=== PATIENT | female | born 1990 | race American Indian/Alaskan Native ===

== ENCOUNTER 2019-04-12 23:20 | Emergency (ER) | payer MEDICAID, OTHER ==
[2019-04-13 00:37] VITALS: BP 123/80
[2019-04-13] MEDS ORDERED: IBUPROFEN PO ONE (03:15)
[2019-04-13] MEDS ORDERED: TYLENOL PO ONE (03:15)
[2019-04-13 03:38] LABS: Bilirubin,Urine NEG (Negative); Blood,Urine NEG (Negative); Color,Urine Yellow (Yellow); Mucus,Urine FEW /HPF; Protein,Urine <15 mg/dL mg/dL (Negative); Urobilinogen,Urine < 2.0 mg/dL (<2.0)
[2019-04-13 04:20] LABS: HCG Qualitative,Urine Negative (Negative)
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
== END 2019-04-13 05:15 | disposition home or self-care (01) ==
LOC: ED 23:20
DX: M62.830 Muscle spasm of back (principal); Z88.0 Allergy status to penicillin; V49.49XA Driver injured in collision with other motor vehicles in traffic accident, initial encounter; Y93.89 Activity, other specified; Y92.410 Unspecified street and highway as the place of occurrence of the external cause; Y99.8 Other external cause status
CPT/HCPCS: 72072; 81001; 81025

== ENCOUNTER 2019-06-13 17:52 | Emergency (ER) | payer MEDICAID, OTHER ==
--- NOTE | 2019-06-13 18:17 | Event Note ---
ED Screening Note Date of service: 06/13/19 Time: 18:14 ED Screening Note: 28 y/o female comes in for RLQ pain times 3 weeks. No vag bleeding or vag discharge. Some dysuria. This initial assessment/diagnostic orders/clinical plan/treatment(s) is/are subject to change based on patients health status, clinical progression and re- assessment by fellow clinical providers in the ED. Further treatment and workup at subsequent clinical providers discretion. Patient/guardian urged not to elope from the ED as their condition may be serious if not clinically assessed and managed. Initial orders include:
[2019-06-13 18:19] VITALS: BP 146/88
[2019-06-13 19:04] LABS: HCG Qualitative,Urine Negative (Negative)
[2019-06-13 19:08] LABS: Basophils % (Auto) 0.6 % (0.0-1.8); Eosinophils # (Auto) 0.1 K/mm3 (0.0-0.4); Eosinophils % (Auto) 1.9 % (0.0-4.3); Hematocrit 33.8 % (30.3-42.9); Hemoglobin 11.3 gm/dl (10.1-14.3); Lymphocytes # (Auto) 2.7 K/mm3 (1.2-5.4); Lymphocytes % (Auto) 42.6 % (13.4-35.0); Mean Corpuscular HGB Conc 33 % (30-34); Mean Corpuscular Volume 95 fl (79-97); Monocytes # (Auto) 0.5 K/mm3 (0.0-0.8); Monocytes % (Auto) 7.3 % (0.0-7.3); Platelet Count 250 K/mm3 (140-440); Red Blood Count 3.56 M/mm3 (3.65-5.03); Red Cell Distribution Width 14.7 % (13.2-15.2)
[2019-06-13 19:13] LABS: Amorphous Crystals,Urine 1+; Bilirubin,Urine NEG (Negative); Blood,Urine NEG (Negative); Color,Urine Yellow (Yellow); Mucus,Urine FEW /HPF; Protein,Urine <15 mg/dL mg/dL (Negative); Urobilinogen,Urine < 2.0 mg/dL (<2.0)
[2019-06-13 19:32] LABS: Alanine Aminotransferase 10 units/L (7-56); Albumin 3.6 g/dL (3.9-5); BUN/Creatinine Ratio 20; Blood Urea Nitrogen 14 mg/dL (7-17); Calcium 9.3 mg/dL (8.4-10.2); Hemolysis Index 8
[2019-06-13] MEDS ORDERED: TORADOL IM ONE (20:33)
--- NOTE | 2019-06-13 20:39 | Emergency Department Report ---
ED Abdominal Pain HPI - General Chief Complaint: Extremity Injury, Lower Stated Complaint: RT SIDE LEG PAIN Time Seen by Provider: 06/13/19 20:33 Source: patient Mode of arrival: Ambulatory Limitations: No Limitations - History of Present Illness Initial Comments: pt is a 28 y/o aaf who presents for 3 weeks right LE pain as primary complaint vice abd pain, pt states abdominal wall pain with movement radiating to right thigh pt denies fall injury trauma , there is no n/v no fever or chills no vaginal bleeding or discharger thigh pain is reproducible to deep palpation, pt remain ambulatory , pain is exacerbated by prolonged standing sitting and 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 Complaint: abdominal pain Onset/Timin -: week(s) Severity: moderate Severity scale (0 -10): 3 Quality: cramping (spasm ) Consistency: intermittent Improves With: rest Worsens With: movement Associated Symptoms: denies: nausea, vomiting, diarrhea, fever, chills, constipation - Related Data Previous Rx's Medication Instructions Recorded Last Taken Type Cyclobenzaprine [Flexeril] 10 mg PO QHS PRN #10 tablet 11/03/18 Unknown Rx Ibuprofen [Motrin 800 MG tab] 800 mg PO TID #30 tablet 11/03/18 Unknown Rx Ibuprofen [Motrin] 800 mg PO Q8HR PRN #24 tablet 04/13/19 Unknown Rx tiZANidine [Zanaflex] 4 mg PO Q8H PRN #21 tablet 04/13/19 Unknown Rx traMADol [Ultram] 50 mg PO Q6HR PRN #15 tablet 04/13/19 Unknown Rx Cyclobenzaprine [Flexeril] 10 mg PO TID PRN #30 tablet 06/13/19 Unknown Rx Menthol/Camphor [[employer] [place] 1 applicatio TP QID PRN #1 tube 06/13/19 Unknown Rx Ointment] Naproxen [Naprosyn] 500 mg PO BID PRN #30 tablet 06/13/19 Unknown Rx Allergies Allergy/AdvReac Type Severity Reaction Status Date / Time Penicillins Allergy Rash Verified 11/03/18 11:44 ED Review of Systems ROS: Stated complaint: RT SIDE LEG PAIN Other details as noted in HPI Constitutional: denies: chills, fever Eyes: denies: eye pain, eye discharge, vision change ENT: denies: ear pain, throat pain Respiratory: denies: cough, shortness of breath, wheezing Cardiovascular: denies: chest pain, palpitations Endocrine: no symptoms reported Gastrointestinal: denies: abdominal pain, nausea, diarrhea Genitourinary: denies: urgency, dysuria, discharge Musculoskeletal: other (thigh pain ) Skin: denies: rash, lesions Neurological: denies: headache, weakness, paresthesias Psychiatric: denies: anxiety, depression Hematological/Lymphatic: denies: easy bleeding, easy bruising ED Past Medical Hx - Past Medical History Previous Medical History?: No - Surgical History Past Surgical History?: No - Social History Smoking Status: Never Smoker Substance Use Type: None - Medications Home Medications: Home Medications Medication Instructions Recorded Confirmed Last Taken Type Cyclobenzaprine [Flexeril] 10 mg PO QHS PRN #10 tablet 11/03/18 Unknown Rx Ibuprofen [Motrin 800 MG tab] 800 mg PO TID #30 tablet 11/03/18 Unknown Rx Ibuprofen [Motrin] 800 mg PO Q8HR PRN #24 tablet 04/13/19 Unknown Rx tiZANidine [Zanaflex] 4 mg PO Q8H PRN #21 tablet 04/13/19 Unknown Rx traMADol [Ultram] 50 mg PO Q6HR PRN #15 tablet 04/13/19 Unknown Rx Cyclobenzaprine [Flexeril] 10 mg PO TID PRN #30 tablet 06/13/19 Unknown Rx Menthol/Camphor [[employer] [place] 1 applicatio TP QID PRN #1 tube 06/13/19 Unknown Rx Ointment] Naproxen [Naprosyn] 500 mg PO BID PRN #30 tablet 06/13/19 Unknown Rx ED Physical Exam - General Limitations: No Limitations General appearance: alert, in no apparent distress - Head Head exam: Present: atraumatic, normocephalic - Eye Eye exam: Present: normal appearance, PERRL, EOMI - ENT ENT exam: Present: mucous membranes moist - Neck Neck exam: Present: normal inspection, full ROM. Absent: tenderness - Respiratory Respiratory exam: Present: normal lung sounds bilaterally. Absent: respiratory distress, wheezes, stridor, chest wall tenderness - Cardiovascular Cardiovascular Exam: Present: regular rate, normal rhythm. Absent: systolic murmur, diastolic murmur, rubs, gallop - GI/Abdominal GI/Abdominal exam: Present: soft, tenderness (right lateral abd wall pain ), normal bowel sounds. Absent: distended, guarding, rebound, rigid, bruit, hernia - Expanded GI/Abdominal Exam Expanded GI/Abdominal exam: Absent: psoas sign, obturator sign, heel tap sign, Potter's sign, Rovsing's sign, tenderness at [place]bur[place]'s Point, ascites - Rectal Rectal exam: Absent: deferred - Extremities Exam Extremities exam: Present: normal inspection, full ROM, normal capillary refill. Absent: tenderness, pedal edema, joint swelling, calf tenderness - Expanded Lower Extremity Exam Right Hip exam: Present: full ROM. Absent: tenderness Upper Leg exam: Present: full ROM, tenderness. Absent: swelling, abrasion, laceration, ecchymosis, deformity, crepidus, dislocation, erythema Knee exam: Present: full ROM. Absent: tenderness Lower Leg exam: Present: normal inspection, full ROM. Absent: tenderness Ankle exam: Present: normal inspection, full ROM. Absent: tenderness Foot/Toe exam: Present: normal inspection, full ROM. Absent: tenderness, swelling Neuro vascular tendon exam: Present: no vascular compromise. Absent: pulse def icit, motor deficit, sensory deficit, tendon deficit Gait: Positive: observed and normal - Back Exam Back exam: Present: normal inspection, full ROM. Absent: tenderness, CVA tenderness (R), CVA tenderness (L), muscle spasm, paraspinal tenderness, vertebral tenderness, rash noted - Neurological Exam Neurological exam: Present: alert, oriented X3, CN II-XII intact, normal gait, reflexes normal. Absent: motor sensory deficit - Psychiatric Psychiatric exam: Present: normal affect, normal mood - Skin Skin exam: Present: warm, dry, intact, normal color. Absent: rash ED Course Vital Signs 06/13/19 18:18 Temperature 98.7 F Pulse Rate 84 Respiratory 18 Rate Blood Pressure 146/88 O2 Sat by Pulse 98 Oximetry ED Medical Decision Making - Lab Data Result diagrams: 06/13/19 18:25 06/13/19 18:25 Labs 06/13/19 06/13/19 06/13/19 18:25 18:25 18:30 WBC 6.3 RBC 3.56 L Hgb 11.3 Hct 33.8 MCV 95 MCH 32 MCHC 33 RDW 14.7 Plt Count 250 Lymph % (Auto) 42.6 H [place] % (Auto) 7.3 Eos % (Auto) 1.9 Baso % (Auto) 0.6 Lymph # 2.7 Ector # 0.5 Eos # 0.1 Baso # 0.0 Seg Neutrophils % 47.6 Seg Neutrophils # 3.0 Sodium 143 Potassium 4.5 Chloride 109.6 H Carbon Dioxide 22 Anion Gap 16 BUN 14 Creatinine 0.7 Estimated GFR > 60 BUN/Creatinine Ratio 20 Glucose 85 Calcium 9.3 Total Bilirubin 0.20 AST 13 ALT 10 Alkaline Phosphatase 74 Total Protein 6.8 Albumin 3.6 L Albumin/Globulin Ratio 1.1 Urine Color Yellow Urine Turbidity Turbid Urine pH 7.0 Ur Specific [place] 1.024 Urine Protein <15 mg/dl Urine Glucose (UA) Neg Urine Ketones Neg Urine Blood Neg Urine Nitrite Neg Ur Reducing Substances Not Reportable Urine Bilirubin Neg Urine Ictotest Not Reportable Urine Urobilinogen < 2.0 Ur Leukocyte Esterase Neg Urine WBC (Auto) 1.0 Urine RBC (Auto) 7.0 U Epithel Cells (Auto) 12.0 Amorphous Crystals 1+ Urine Mucus Few Urine HCG, Qual Negative - Medical Decision Making this is an abdominal wall strain , right anteiror thigh strain , no hernia no n/v no fever or chills no trauma no fall no deformity no swelling, plan: naproxen, flexeril, analgesic balm, moist heat therapy pt will follow up with pcp in 2-3 days return to ed if symptoms worsen. Critical care attestation.: If time is entered above; I have spent that time in minutes in the direct care of this critically ill patient, excluding procedure time. ED Disposition Clinical Impression: Strain of abdominal wall Qualifiers: Encounter type: initial encounter Qualified Code(s): S39.011A - Strain of muscle, fascia and tendon of abdomen, initial encounter Muscle strain of thigh Qualifiers: Encounter type: initial encounter Laterality: right Qualified Code(s): S76.911A - Strain of unspecified muscles, fascia and tendons at thigh level, right thigh, initial encounter Disposition: - TO HOME OR SELFCARE Is pt being admited?: No Does the pt Need Aspirin: No Condition: Stable Instructions: Muscle Strain (ED) Prescriptions: Cyclobenzaprine [Flexeril] 10 mg PO TID PRN #30 tablet PRN Reason: Muscle Spasm Naproxen [Naprosyn] 500 mg PO BID PRN #30 tablet PRN Reason: Pain , Severe (7-10) Menthol/Camphor [[employer] [place] Ointment] 1 applicatio TP QID PRN #1 tube PRN Reason: pain Referrals: [facility] [Outside] - 3-5 Days Forms: Work/School Release Form(ED) Time of Disposition: 20:46
[2019-06-13] MEDS ORDERED: NORCO 5/325 PO ONE (20:46)
== END 2019-06-13 21:07 | disposition home or self-care (01) ==
LOC: ED 17:52
DX: S39.011A Strain of muscle, fascia and tendon of abdomen, initial encounter (principal); S76.911A Strain of unspecified muscles, fascia and tendons at thigh level, right thigh, initial encounter; Z79.4 Long term (current) use of insulin; Z79.899 Other long term (current) drug therapy; Z88.0 Allergy status to penicillin; X50.1XXA Overexertion from prolonged static or awkward postures, initial encounter; Y93.89 Activity, other specified; Y92.69 Other specified industrial and construction area as the place of occurrence of the external cause; Y99.8 Other external cause status
CPT/HCPCS: 36415; 80053; 81001; 81025; 85025; 99283

== ENCOUNTER 2019-08-08 18:23 | Emergency (ER) | payer MEDICAID ==
--- NOTE | 2019-08-08 18:42 | Event Note ---
ED Screening Note Date of service: 08/08/19 Time: 18:39 ED Screening Note: 28 y o f presents cc of low pelvic pain x couple of days positive dysuria This initial assessment/diagnostic orders/clinical plan/treatment(s) is/are subject to change based on patients health status, clinical progression and re- assessment by fellow clinical providers in the ED. Further treatment and workup at subsequent clinical providers discretion. Patient/guardian urged not to elope from the ED as their condition may be serious if not clinically assessed and managed. Initial orders include: ua, upt
[2019-08-08 19:12] LABS: HCG Qualitative,Urine Negative (Negative)
[2019-08-08 19:18] LABS: Bilirubin,Urine NEG (Negative); Blood,Urine NEG (Negative); Color,Urine Amber (Yellow); Mucus,Urine 3+ /HPF
[2019-08-08] MEDS ORDERED: ZOFRAN IV ONE (21:07)
[2019-08-08] MEDS ORDERED: TORADOL IV ONE (21:07)
[2019-08-08 21:31] LABS: Basophils % (Auto) 0.6 % (0.0-1.8); Eosinophils # (Auto) 0.1 K/mm3 (0.0-0.4); Eosinophils % (Auto) 1.8 % (0.0-4.3); Hematocrit 35.5 % (30.3-42.9); Hemoglobin 11.7 gm/dl (10.1-14.3); Lymphocytes # (Auto) 1.8 K/mm3 (1.2-5.4); Lymphocytes % (Auto) 34.1 % (13.4-35.0); Mean Corpuscular HGB Conc 33 % (30-34); Mean Corpuscular Volume 95 fl (79-97); Monocytes # (Auto) 0.6 K/mm3 (0.0-0.8); Monocytes % (Auto) 10.7 % (0.0-7.3); Platelet Count 250 K/mm3 (140-440); Red Blood Count 3.73 M/mm3 (3.65-5.03); Red Cell Distribution Width 14.2 % (13.2-15.2)
[2019-08-08 22:02] LABS: Alanine Aminotransferase 10 units/L (7-56); Albumin 3.3 g/dL (3.9-5); BUN/Creatinine Ratio 14; Blood Urea Nitrogen 11 mg/dL (7-17); Calcium 8.8 mg/dL (8.4-10.2); Hemolysis Index 8
[2019-08-08] MEDS ORDERED: ZITHROMAX PO ONE (22:34)
[2019-08-08] MEDS ORDERED: ROCEPHIN/NS 1 GM/50 ML 1 GM/50 ML BAG IV ONE (22:34)
[2019-08-08] MEDS ORDERED: BENADRYL IV ONE (22:35)
--- NOTE | 2019-08-08 22:47 | Cat Scan Report ---
CT ABDOMEN AND PELVIS WITH IV CONTRAST, 08/08/2019 INDICATION: Generalized pelvic pain, constipation and back pain TECHNIQUE: Following the administration of intravenous contrast, multiple axial CT images of the abdo men and pelvis were acquired. Sagittal and coronal reformats were obtained. All CT performed at this facility utilize dose reduction techniques including automated exposure control, iterative reconstru ction and weight based dosing when appropriate to reduce patient radiation dose to as low as reasonab ly achievable. . COMPARISON: No prior studies are available for comparison. FINDINGS: Limited imaging of the bilateral lung bases demonstrates no evidence of acute abnormality. There is a n oval 1.3 cm mass in the inferior aspect of the right breast and a 9 mm mass in the lateral aspect o f the left breast. Abdomen: The liver, gallbladder, spleen, pancreas, bilateral adrenal glands and bilateral kidneys contreras w no evidence of acute abnormality. The large and small bowel are normal in caliber. The appendix is visualized and appears normal. Pelvis: No large amount of free pelvic fluid is seen. There is a small amount of endometrial fluid. T he urinary bladder appears normal. Evaluation of bony structures demonstrates no evidence of acute bony abnormality. Evaluation of soft tissue structures demonstrates no evidence of acute soft tissue abnormality. IMPRESSION: 1. No evidence of acute inflammatory or obstructive process within the abdomen or pelvis. 2. Bilateral breast masses as described. While these are most likely a benign finding in this young p atient, recommend a diagnostic mammogram and ultrasound when the patient's clinical condition permits . Signer Name: Jyoti Middleton MD Signed: 08/08/2019 10:42 PM Workstation Name: [id number]
--- NOTE | 2019-08-08 23:46 | Emergency Department Report ---
ED Abdominal Pain HPI - General Chief Complaint: Urogenital-Female Stated Complaint: STOMACH PAIN/BACK PAIN Time Seen by Provider: 08/08/19 18:38 Source: patient Mode of arrival: Ambulatory Limitations: No Limitations - History of Present Illness Initial Comments: Patient is a A0 28-year-old AA female who presents to the ED with complaint of acute onset persistence of the suprapubic and diffuse lower abdominal pain for the last 1 week, was in the last 2 days. Patient also complains of dysuria, urinary frequency and urgency, vaginal discharge, intermittent nausea and low back pain. Patient denies fever, chills, vomiting, dyspareunia, vaginal bleeding, dizziness, diarrhea, chest pain or shortness of breath, cough or sore throat. MD Complaint: abdominal pain -: Sudden, week(s) (1) Location: suprapubic Radiation: LLQ, RLQ Migration to: no migration Severity scale (0 -10): 5 Quality: cramping, aching, sharp Consistency: constant Improves With: nothing Worsens With: nothing Associated Symptoms: denies other symptoms, nausea, vomiting. denies: diarrhea, fever, chills, constipation, dysuria, hematemesis, hematochezia - Related Data LMP Date: 07/13/19 Previous Rx's Medication Instructions Recorded Last Taken Type Cyclobenzaprine [Flexeril] 10 mg PO QHS PRN #10 tablet 11/03/18 Unknown Rx Ibuprofen [Motrin 800 MG tab] 800 mg PO TID #30 tablet 11/03/18 Unknown Rx Ibuprofen [Motrin] 800 mg PO Q8HR PRN #24 tablet 04/13/19 Unknown Rx tiZANidine [Zanaflex] 4 mg PO Q8H PRN #21 tablet 04/13/19 Unknown Rx traMADol [Ultram] 50 mg PO Q6HR PRN #15 tablet 04/13/19 Unknown Rx Cyclobenzaprine [Flexeril] 10 mg PO TID PRN #30 tablet 06/13/19 Unknown Rx Menthol/Camphor [[place] 1 applicatio TP QID PRN #1 tube 06/13/19 Unknown Rx Ointment] Naproxen [Naprosyn] 500 mg PO BID PRN #30 tablet 06/13/19 Unknown Rx Ibuprofen [Motrin] 800 mg PO Q8HR PRN #20 tablet 08/09/19 Unknown Rx Ondansetron [Zofran Odt] 4 mg PO Q6HR PRN #15 tab.rapdis 08/09/19 Unknown Rx Sulfamethoxazole/Trimethoprim 1 each PO Q12H #20 tablet 08/09/19 Unknown Rx [Bactrim DS TAB] traMADol [Ultram] 50 mg PO Q6HR PRN #10 tablet 08/09/19 Unknown Rx Allergies Allergy/AdvReac Type Severity Reaction Status Date / Time Penicillins Allergy Rash Verified 11/03/18 11:44 ED Review of Systems ROS: Stated complaint: STOMACH PAIN/BACK PAIN Other details as noted in HPI Constitutional: denies: chills, fever Eyes: denies: eye pain, eye discharge, vision change ENT: denies: ear pain, throat pain Respiratory: denies: cough, shortness of breath, wheezing Cardiovascular: denies: chest pain, palpitations Endocrine: no symptoms reported Gastrointestinal: abdominal pain, nausea, vomiting. denies: diarrhea Genitourinary: urgency, dysuria, frequency, discharge Musculoskeletal: denies: back pain, joint swelling, arthralgia Skin: denies: rash, lesions Neurological: denies: headache, weakness, paresthesias Psychiatric: denies: anxiety, depression Hematological/Lymphatic: denies: easy bleeding, easy bruising ED Past Medical Hx - Past Medical History Hx Asthma: No - Surgical History Hx Appendectomy: No - Social History Smoking Status: Never Smoker Substance Use Type: None - Medications Home Medications: Home Medications Medication Instructions Recorded Confirmed Last Taken Type Cyclobenzaprine [Flexeril] 10 mg PO QHS PRN #10 tablet 11/03/18 Unknown Rx Ibuprofen [Motrin 800 MG tab] 800 mg PO TID #30 tablet 11/03/18 Unknown Rx Ibuprofen [Motrin] 800 mg PO Q8HR PRN #24 tablet 04/13/19 Unknown Rx tiZANidine [Zanaflex] 4 mg PO Q8H PRN #21 tablet 04/13/19 Unknown Rx traMADol [Ultram] 50 mg PO Q6HR PRN #15 tablet 04/13/19 Unknown Rx Cyclobenzaprine [Flexeril] 10 mg PO TID PRN #30 tablet 06/13/19 Unknown Rx Menthol/Camphor [[place] 1 applicatio TP QID PRN #1 tube 06/13/19 Unknown Rx Ointment] Naproxen [Naprosyn] 500 mg PO BID PRN #30 tablet 06/13/19 Unknown Rx Ibuprofen [Motrin] 800 mg PO Q8HR PRN #20 tablet 08/09/19 Unknown Rx Ondansetron [Zofran Odt] 4 mg PO Q6HR PRN #15 tab.rapdis 08/09/19 Unknown Rx Sulfamethoxazole/Trimethoprim 1 each PO Q12H #20 tablet 08/09/19 Unknown Rx [Bactrim DS TAB] traMADol [Ultram] 50 mg PO Q6HR PRN #10 tablet 08/09/19 Unknown Rx ED Physical Exam - General Limitations: No Limitations General appearance: alert, in no apparent distress - Head Head exam: Present: atraumatic, normocephalic, normal inspection - Eye Eye exam: Present: normal appearance, PERRL, EOMI Pupils: Present: normal accommodation - ENT ENT exam: Present: normal exam, normal orophraynx, mucous membranes moist, TM's normal bilaterally, normal external ear exam - Neck Neck exam: Present: normal inspection, full ROM. Absent: tenderness, l ymphadenopathy - Respiratory Respiratory exam: Present: normal lung sounds bilaterally. Absent: respiratory distress, wheezes, rales, chest wall tenderness, accessory muscle use, decreased breath sounds - Cardiovascular Cardiovascular Exam: Present: normal rhythm, tachycardia, normal heart sounds. Absent: systolic murmur, diastolic murmur, rubs, gallop - GI/Abdominal GI/Abdominal exam: Present: soft, tenderness (suprapubic moderately), normal bowel sounds. Absent: guarding, rebound, hyperactive bowel sounds, hypoactive bowel sounds, organomegaly - External exam: Present: normal external exam Speculum exam: Present: vaginal discharge, cervical discharge Bi-manual exam: Present: cervical motion tendernes, adnexal tenderness (bilaterally), uterine tenderness - Extremities Exam Extremities exam: Present: normal inspection, normal capillary refill - Back Exam Back exam: Present: normal inspection, full ROM. Absent: tenderness, CVA tenderness (R), CVA tenderness (L), muscle spasm, paraspinal tenderness, vertebral tenderness - Neurological Exam Neurological exam: Present: alert, oriented X3, CN II-XII intact, normal gait, reflexes normal - Psychiatric Psychiatric exam: Present: normal affect, normal mood - Skin Skin exam: Present: warm, dry, intact, normal color. Absent: rash ED Course Vital Signs 08/08/19 08/08/19 08/09/19 18:39 22:15 01:49 Temperature 98.5 F 98 F Pulse Rate 109 H 74 Respiratory 18 16 16 Rate Blood Pressure 162/89 Blood Pressure 116/66 [Left] O2 Sat by Pulse 95 100 Oximetry ED Medical Decision Making - Lab Data Result diagrams: 08/08/19 21:24 08/08/19 21:20 - Radiology Data Radiology results: report reviewed, image reviewed Findings [facility] [address] [place] [address] Cat Scan Report Signed Patient: AMINATA SOLO MR#: [id number] : 1990 Acct:[id number] Age/Sex: 28 / F ADM Date: 08/08/19 Loc: ED Attending Dr: Ordering Physician: JANA GUNN Date of Service: 08/08/19 Procedure(s): CT abdomen pelvis w con Accession Number(s): [id number] cc: JANA GUNN CT ABDOMEN AND PELVIS WITH IV CONTRAST, 08/08/2019 INDICATION: Generalized pelvic pain, constipation and back pain TECHNIQUE: Following the administration of intravenous contrast, multiple axial CT images of the abdomen and pelvis were acquired. Sagittal and coronal reformats were obtained. All CT performed at this facility utilize dose reduction techniques including automated exposure control, iterative reconstruction and weight based dosing when appropriate to reduce patient radiation dose to as low as reasonably achievable. . COMPARISON: No prior studies are available for comparison. FINDINGS: Limited imaging of the bilateral lung bases demonstrates no evidence of acute abnormality. There is an oval 1.3 cm mass in the inferior aspect of the right breast and a 9 mm mass in the lateral aspect of the left breast. Abdomen: The liver, gallbladder, spleen, pancreas, bilateral adrenal glands and bilateral kidneys show no evidence of acute abnormality. The large and small bowel are normal in caliber. The appendix is visualized and appears normal. Pelvis: No large amount of free pelvic fluid is seen. There is a small amount of endometrial fluid. The urinary bladder appears normal. Evaluation of bony structures demonstrates no evidence of acute bony abnormality. Evaluation of soft tissue structures demonstrates no evidence of acute soft tissue abnormality. IMPRESSION: 1. No evidence of acute inflammatory or obstructive process within the abdomen or pelvis. 2. Bilateral breast masses as described. While these are most likely a benign finding in this young patient, recommend a diagnostic mammogram and ultrasound when the patient's clinical condition permits. Signer Name: Jyoti Middleton MD Signed: 08/08/2019 10:42 PM Workstation Name: [id number] Transcribed By: EB Dictated By: Jyoti Middleton MD Electronically Authenticated By: Jyoti Middleton MD Signed Date/Time: 08/08/19 5260 - Medical Decision Making This is a 28 yo AA female who presented to the ED with c/o acute onset lower abdominal pain. In the ED the patient is alert and oriented x3 and is in no acute distress, but tachycardic in triage. Patient was treated for pain in the ED and based on pelvic exam, patient was treated for acute PID in the ED. Abdomen Pelvis CT scan with contrast shows the liver, gallbladder, spleen, pancreas, bilateral adrenal glands and bilateral kidneys with no evidence of ac johann abnormality. The large and small bowel are normal in caliber. The appendix is visualized and appears normal. In the pelvis there are no large amount of free pelvic fluid is seen. There is a small amount of endometrial fluid. The urinary bladder appears normal. Evaluation of bony structures demonstrates no evidence of acute bony abnormality. Evaluation of soft tissue structures demonstrates no evidence of acute soft tissue abnormality. On reevaluation, patient's pain is well-controlled and tachycardia resolved with medications. Patient was discharged home on medication and also advised to follow-up with her primary care physician in 7-10 days for reevaluation or return to the ED immediately if symptoms get worse. - Differential Diagnosis Acute PID; Abdominal pain; Acute UTI; Appendicitis Critical care attestation.: If time is entered above; I have spent that time in minutes in the direct care of this critically ill patient, excluding procedure time. ED Disposition Clinical Impression: Acute pelvic inflammatory disease (PID), Acute urinary tract infection Abdominal pain Qualifiers: Abdominal location: lower abdomen, unspecified Qualified Code(s): R10.30 - Lower abdominal pain, unspecified Disposition: DC-01 TO HOME OR SELFCARE Is pt being admited?: No Does the pt Need Aspirin: No Condition: Stable Instructions: Pelvic Inflammatory Disease (ED), Urinary Tract Infection in Women (ED), Abdominal Pain (ED) Additional Instructions: Take medication with food, drink plenty of fluids and follow-up with your primary care physician in 7-10 days for reevaluation. Return to the ED immediately if symptoms get worse. Prescriptions: Sulfamethoxazole/Trimethoprim [Bactrim DS TAB] 1 each PO Q12H #20 tablet Ibuprofen [Motrin] 800 mg PO Q8HR PRN #20 tablet PRN Reason: Pain , Severe (7-10) traMADol [Ultram] 50 mg PO Q6HR PRN #10 tablet PRN Reason: Pain Ondansetron [Zofran Odt] 4 mg PO Q6HR PRN #15 tab.rapdis PRN Reason: Nausea Referrals: PRIMARY CARE,MD [Primary Care Provider] - 3-5 Days Time of Disposition: 01:11 Print Language: [place]
[2019-08-09 01:50] VITALS: BP 116/66
== END 2019-08-09 01:50 | disposition home or self-care (01) ==
LOC: ED 18:23
DX: N73.0 Acute parametritis and pelvic cellulitis (principal); N39.0 Urinary tract infection, site not specified; Z79.899 Other long term (current) drug therapy; Z88.0 Allergy status to penicillin
CPT/HCPCS: 36415; 74177; 80053; 81001; 81025; 83690; 85025; 96365; 96366; 96375; 99284; J0696; J1200; J1885; J2405; Q9967